=== PATIENT | female | born 1945 | race African-American/Black ===

== ENCOUNTER → 2016-09-08 | Outpatient (CLI) | payer BC, MEDICARE ==
[~2016-09-08] VITALS: Ht 165.1 cm; Wt 94.8 kg
[~2016-09-08] MED LIST: AMLO5TAB2 PO; BLOOD PRESSURE MED; GLYB5TAB3 PO; INSU100V8 SQ; LIDOCAINE 1% / SOD BICARB 8.4% 20 ML VIAL. IJ ONE; LIDOCAINE 2%/EPI 1:100,000 20 ML VIAL. IJ ONE; METF10002 PO; METF500T4 PO
[2016-09-08 07:41] VITALS: BP 183/84
--- NOTE | 2016-09-09 13:18 | PATHOLOGY ---
PATHOLOGY REPORT * * * * * * * * FINAL DIAGNOSIS: Breast tissue, right breast needle biopsies: - Proliferative fibrocystic changes, focal, with the following components: a. Mild to moderate ductal epithelial hyperplasia, focal. b. Stromal fibrosis. c. Cystic change. d. Apocrine metaplasia. - Focal polarizable foreign material identified. COMMENT: There is focal polarizable crystalline material identified within dilated ducts and cysts, which may give the appearance of calcifications on mammography. There is no evidence of malignancy. Correlate with clinical and mammographic findings. (JPM:mgr; d/t: 09/09/16) REPORT ELECTRONICALLY SIGNED BY: Placido Dotson M.D. DATE/TIME: 09/09/2016 13:17 * * * * * * * * GROSS PATHOLOGY: Received in formalin labeled "Pattie Harper, right breast calcifications 6:00," are multiple needle cores of yellow-card fibrofatty tissue measuring 2.4 x 2.0 x 0.5 cm in aggregate dimensions. Also received is a plastic cassette containing multiple cores of yellow-card fibrofatty tissue measuring 1.2 x 1.0 x 0.3 cm in aggregate dimensions. The tissue in the cassette is transferred to cassette A1, and the remaining tissue is submitted in its entirety in cassette A2. The cold ischemic time is 8 minutes. The total formalin fixation time is 11 hours and 7 minutes. (CAA; 09/08/2016) INITIAL CPT CODE(S): A; 18892 Professional services performed [place] [facility] [place] [address] Technical services performed by [facility] at [address] [place] [address], [facility] [address] [address]. SPECIMEN(S) RECEIVED: A.Right breast biopsy CLINICAL HISTORY: Calcifications PATIENT: PATTIE HARPER /AGE: 512/22/1945 (Age: 70) PATIENT #: [id number] ALT CASE #: SPECIMEN COLLECTION DATE: 09/08/2016 SPECIMEN RECEIVED DATE: 09/08/2016 [facility] - [address] [place] [address] - PHONE: [phone] * * * END OF REPORT * * *
== END | disposition home or self-care (01) ==
LOC: MAMMO 07:05
PROVIDERS: ATTEND Surgery
DX: R92.0 Mammographic microcalcification found on diagnostic imaging of breast (principal); I10 Essential (primary) hypertension; E11.9 Type 2 diabetes mellitus without complications
CPT/HCPCS: 19085; 77022; 88305; C1713; G0206; 77065

== ENCOUNTER → 2017-09-28 | Outpatient (CLI) | payer BC | END | disposition home or self-care (01) | LOC: MAMMO 14:13 | DX: N63.10 Unspecified lump in the right breast, unspecified quadrant (principal) | CPT/HCPCS: 76641; 77066; G0279 ==

== ENCOUNTER 2018-04-28 20:13 | Emergency (ER) | payer BC ==
[~2018-04-28] VITALS: Ht 165.1 cm; Wt 94.8 kg
[~2018-04-28 20:13] MED LIST changes: -AMLO5TAB2 PO; +AMLO5TAB7 PO; -LIDOCAINE 1% / SOD BICARB 8.4% 20 ML VIAL. IJ ONE; -LIDOCAINE 2%/EPI 1:100,000 20 ML VIAL. IJ ONE; -METF10002 PO; +METF10007 PO; +METF500T16 PO; -METF500T4 PO
[2018-04-28 21:09] VITALS: BP 163/80
[2018-04-28] MEDS ORDERED: DIPHTH,PERTUSS(ACELL),TET TOX 0.5 ML DISP.SYRIN. VAX IM ONE (21:45)
--- NOTE | 2018-04-28 22:08 | PHYS DOC ---
Past Medical History Past Medical History: Diabetes-Type II, Hypertension Past Surgical History: Other Additional Past Surgical Histo: CYST REMOVAL (ARM, HERNIA) Alcohol Use: None Drug Use: None Adult General Chief Complaint Chief Complaint: MECHANICAL FALL HPI HPI Patient is a 72 year old female who presents after a fall. Patient states she was stepping down off of the steps in her front porch when she missed a step and fell. The accident happened earlier today. She complains of pain in the right hip and the right knee. Review of Systems Review of Systems Constitutional: Denies fever Eyes: Denies change HENT: Denies nasal congestion Respiratory: Denies cough or shortness of breath Cardiovascular: No additional information not addressed in HPI GI: Denies abdominal pain Musculoskeletal: Denies back pain Integument: Denies rash or skin lesions Neurologic: Denies headache All other systems were reviewed and found to be within normal limits, except as documented in this note. Current Medications Current Medications Current Medications Medications (Trade) Dose Ordered Sig/Juanis Start Time Stop Time Status Last Admin Dose Admin Diphtheria/ Tetanus/Acell Pertussis (Boostrix) 0.5 ml ONCE ONCE 04/28/18 21:45 04/28/18 21:46 DC 04/28/18 22:26 0.5 ML Allergies Allergies Allergies Coded Allergies Type Severity Reaction Last Updated Verified No Known Drug Allergies 12/05/13 No Physical Exam Physical Exam Constitutional: Well developed, well nourished, no acute distress, non-toxic appearance HENT: Normocephalic, atraumatic, bilateral external ears normal, oropharynx moist Eyes: PERRLA, EOMI, conjunctiva normal Neck: Normal range of motion, no tenderness Cardiovascular:Heart rate regular rhythm, no murmur Lungs & Thorax: Bilateral breath sounds clear to auscultation Abdomen: Bowel sounds normal, soft Skin: Warm, dry, no erythema Back: No tenderness, no CVA tenderness Extremities: mild swelling and small abrasion over the right knee. + pain in the right hip with passive ROM Neurologic: Alert and oriented X 3 Psychologic: Affect normal Current Patient Data Vital Signs Vital Signs Date Time Temp Pulse Resp B/P (MAP) Pulse Ox O2 Delivery O2 Flow Rate FiO2 04/28/18 21:09 99.5 109 20 163/80 (107) 98 Room Air 99.5 EKG EKG [] Radiology/Procedures Radiology/Procedures No acute findings on right hip or right knee Course & Med Decision Making Course & Med Decision Making Pertinent Labs and Imaging studies reviewed. (See chart for details) Patient is evaluated in the emergency department for a fall. She had some minor trauma to the right knee and some pain in the right hip. She had imaging of the pelvis and knee. There were no acute fractures seen. The patient was able to weight bear. Patient was discharged home with a prescription for some pain medications. She was advised to follow-up with her primary doctor or return to the ER for any new or worsening symptoms. Dragon Disclaimer Dragon Disclaimer This electronic medical record was generated, in whole or in part, using a voice recognition dictation system. Departure Departure Referrals: UNKNOWN PCP NAME (PCP) Scripts Hydrocodone/Apap 5-325 (NORCO 5-325 TABLET) 1 Each Tablet 1-2 EACH PO PRN Q6HRS PRN for PAIN, #10 as needed for pain Prov: NIKKO GARCIA DO 04/28/18 NIKKO GARCIA DO Apr 28, 2018 22:07
--- NOTE | 2018-04-28 22:29 | RAD ---
AP pelvis radiograph to include AP and lateral radiographs of the right hip 04/28/2018 CLINICAL HISTORY: Fall with injury to the right hip. An AP digital radiograph of the pelvis to include both hips was obtained. AP and lateral radiographs of the right hip were obtained. No pelvic bone fracture is seen. Both hips are intact. Specifically no fracture or dislocation of the right hip is seen. Mild to moderate degenerative changes are seen involving both hips. Mild to moderate degenerative changes are seen involving both SI joints. A 2 cm calcification is seen within the right pelvis may reflect a calcified fibroid. Degenerative changes are seen involving the mid and lower lumbar spine. IMPRESSION: No fracture or dislocation is seen. Electronically signed by: Lowell Baxter MD (04/28/2018 10:26 PM) [facility]
[2018-04-28] MEDS ORDERED: HYDR-971 PO (22:40)
--- NOTE | 2018-04-28 22:58 | RAD ---
Three-view right knee radiographs 04/28/2018 CLINICAL HISTORY: Fall with injury to the right knee. AP, lateral and oblique digital radiographs of the right knee were obtained. No fracture or dislocation of the right knee is seen. There is no radiographic evidence of a joint effusion. Chondrocalcinosis is seen involving the medial and lateral compartments of the right knee. Mild degenerative changes are seen involving the medial compartment of the right knee. IMPRESSION: No fracture or dislocation of the right knee is seen. Electronically signed by: Lowell Baxter MD (04/28/2018 10:54 PM) [facility]
== END 2018-04-28 23:10 | disposition home or self-care (01) ==
LOC: ER 20:13
DX: M25.561 Pain in right knee (principal); M25.551 Pain in right hip; G89.11 Acute pain due to trauma; I10 Essential (primary) hypertension; E78.00 Pure hypercholesterolemia, unspecified; W10.9XXA Fall (on) (from) unspecified stairs and steps, initial encounter; Y93.89 Activity, other specified; Y92.89 Other specified places as the place of occurrence of the external cause; Y99.8 Other external cause status
CPT/HCPCS: 73502; 73562; 90471; 90715; 99284-25